=== PATIENT | male | born 1965 ===

== ENCOUNTER 2017-12-27 17:56 | Emergency (ER) | payer OTHER ==
[2017-12-27 18:07] VITALS: BMI 34.4
[2017-12-27 18:08] VITALS: RESP 18
[2017-12-27] MEDS ORDERED: cefTRIAXone 1 gm 1 GM/100 ML BAG IVPB STA (18:18)
[2017-12-27] MEDS ORDERED: Vancomycin 1gm in NS 250ml 1 GM/250 ML BAG IVPB STA (18:19)
--- NOTE | 2017-12-27 18:30 | ED PDOC ---
Arrival/HPI - General Chief Complaint: Lower Extremity Problem/Injury Time Seen by Provider: 12/27/17 18:00 Historian: Patient - History of Present Illness Narrative History of Present Illness (Text): 12/27/17 18:21 51yo male with pmhx of hypertension present with complaint of worsening right lower leg wound and pain. States he had a little lump that looked like pimple. States he squeezed it and it became bigger. States pain became worse with redness to the area. Denies fever, but had low grade temp during the triage. He denies nausea, vomiting, calf pain, any other complaint. Past Medical History - Provider Review Nursing Documentation Reviewed: Yes - Infectious Disease Hx of Infectious Diseases: None - Cardiac Hx Hypertension: Yes - Psychiatric Hx Substance Use: No - Anesthesia Hx Anesthesia: No Family/Social History - Physician Review Nursing Documentation Reviewed: Yes Family/Social History: Unknown Family HX Smoking Status: Never Smoked Hx Alcohol Use: No Hx Substance Use: No Allergies/Home Meds Allergies/Adverse Reactions: Allergies No Known Allergies Allergy (Verified 12/27/17 18:07) Home Medications: Home Meds Medication Instructions Recorded Confirmed Losartan [Cozaar] 1 tab PO DAILY 12/27/17 12/27/17 Review of Systems - Physician Review All systems were reviewed & negative as marked: Yes - Review of Systems Constitutional: Normal Eyes: Normal ENT: Normal Respiratory: Normal Cardiovascular: Normal Gastrointestinal: Normal Genitourinary Male: Normal Musculoskeletal: Normal Skin: Abscess, Cellulitis Neurological: Normal Endocrine: Normal Hemo/Lymphatic: Normal Psychiatric: Normal Physical Exam Vital Signs Reviewed: Yes Vital Signs Temp Pulse Resp BP Pulse Ox 12/27/17 18:08 99 F 105 H 18 143/78 96 12/27/17 18:07 99 F 105 H 18 143/78 96 Temperature: Afebrile Blood Pressure: Normal Pulse: Regular Respiratory Rate: Normal Appearance: Positive for: Well-Appearing, Non-Toxic, Comfortable Pain Distress: None Mental Status: Positive for: Alert and Oriented X 3 - Systems Exam Head: Present: Atraumatic, Normocephalic Pupils: Present: PERRL Extroacular Muscles: Present: EOMI Conjunctiva: Present: Normal Mouth: Present: Moist Mucous Membranes Neck: Present: Normal Range of Motion Respiratory/Chest: Present: Clear to Auscultation, Good Air Exchange. No: Respiratory Distress, Accessory Muscle Use Cardiovascular: Present: Regular Rate and Rhythm, Normal S1, S2. No: Murmurs Abdomen: No: Tenderness, Distention, Peritoneal Signs Back: Present: Normal Inspection Upper Extremity: Present: Normal Inspection. No: Cyanosis, Edema Lower Extremity: Present: Normal Inspection. No: Edema Neurological: Present: GCS=15, CN II-XII Intact, Speech Normal Skin: Present: Warm, Dry, Normal Color, Abscess (Draining abscess with surrounding erythema noted to right mak/anterior lower leg. +Warm to touch. No crepitus.). No: Rashes Psychiatric: Present: Alert, Oriented x 3, Normal Insight, Normal Concentration Medical Decision Making ED Course and Treatment: 12/27/17 20:28 PT present to ED for stated history. He was afebrile and hemodynamically stable. Lab was unremarkable Pt was offered admission , but he declined. He was treated with Rocephin and Vanco in ED. Result was DW the pt. He was advised to return to ED immediately for worsening redness, fever or any other complaint. Keflex and Bactrim DS rx was given. - Lab Interpretations Lab Results: 12/27/17 19:15 12/27/17 19:15 Lab Results 12/27/17 19:15: Sodium 141, Potassium 4.2, Chloride 103, Carbon Dioxide 28, Anion Gap 15, BUN 13, Creatinine 0.8, Est GFR ( Amer) > 60, Est GFR (Non- Af Amer) > 60, Random Glucose 161 H, Calcium 9.3, Total Bilirubin 0.3, AST 28, ALT 27, Alkaline Phosphatase 74, Total Protein 7.8, Albumin 4.0, Globulin 3.8, Albumin/Globulin Ratio 1.1 12/27/17 19:15: WBC 10.7, RBC 4.31, Hgb 13.5 L, Hct 38.6 L, MCV 89.6, MCH 31.3, MCHC 35.0, RDW 13.1, Plt Count 236, MPV 10.5, Gran % 64.5, Lymph % (Auto) 24.7, S[place]y % (Auto) 9.6 H, Eos % (Auto) 0.9 L, Baso % (Auto) 0.3, Gran # 6.90 H, Lymph # (Auto) 2.7, [place]y # (Auto) 1.0 H, Eos # (Auto) 0.1, Baso # (Auto) 0.03 - Medication Orders Current Medication Orders: Discontinued Medications Ceftriaxone Sodium (Rocephin 1 Gram Ivpb) 1 gm in 100 mls @ 200 mls/hr IVPB STAT STA PRN Reason: Protocol Stop: 12/27/17 18:47 Last Admin: 12/27/17 19:24 Dose: 200 mls/hr eMAR Start Stop Document 12/27/17 19:24 HI (Rec: 12/27/17 19:24 [place] [id number]) Intravenous Solution Start Date 12/27/17 Start Time 19:15 Vancomycin HCl (Vancomycin 1gm) 1 gm in 250 mls @ 167 mls/hr IVPB STAT STA PRN Reason: Protocol Stop: 12/27/17 19:48 Disposition/Present on Arrival - Present on Arrival Any Indicators Present on Arrival: No History of DVT/PE: No History of Uncontrolled Diabetes: No Urinary Catheter: No History of Decub. Ulcer: No History Surgical Site Infection Following: None - Disposition Have Diagnosis and Disposition been Completed?: Yes Diagnosis: Cellulitis and abscess of leg Disposition: HOME/ ROUTINE Disposition Time: 19:55 Patient Plan: Discharge Patient Problems: Current Active Problems Problem Status Onset Cellulitis and abscess of leg Acute Condition: STABLE Discharge Instructions (ExitCare): Cellulitis (Skin Infection), Adult (DC), Cellulitis (ED) Additional Instructions: Follow up with your Doctor Return to ED for fever, worsening redness, any other new complaint Prescriptions: Cephalexin [Keflex] 500 mg PO TID #30 capsule Ibuprofen [Motrin Tab] 600 mg PO Q6 #15 tab Sulfamethoxazole/Trimethoprim [Bactrim DS 800 mg-160 mg] 1 tab PO BID #20 tab Referrals: Dorinda Mckeon MD [Medical Doctor] - Follow up with primary Forms: Sampa (Mosotho)
[2017-12-27 19:40] LABS: BASO # 0.03 K/mm3 (0.0-2.0); BASO % 0.3 % (0.0-3.0); EOS # 0.1 (0.0-0.7); EOS % 0.9 % (1.5-5.0); GRAN # 6.9 (1.4-6.5); GRAN % 64.5 % (50.0-68.0); HEMOGLOBIN 13.5 g/dL (14.0-18.0); LYMPH # 2.7 (1.2-3.4); LYMPH % 24.7 % (22.0-35.0); MEAN CELL VOLUME 89.6 fl (80.0-105.0); MEAN CORPUSCULAR HEMOGLOBIN 31.3 pg (25.0-35.0); MEAN PLATELET VOLUME 10.5 fl (7.0-11.0); MONO % 9.6 % (1.0-6.0); RBC 4.31 10^6/uL (3.5-6.1); RED CELL DISTRIBUTION WIDTH 13.1 % (11.5-14.5); WHITE BLOOD COUNT 10.7 10^3/ul (4.5-11.0)
[2017-12-27 19:50] LABS: ALB/GLOB RATIO 1.1 (1.1-1.8); ALT/SGPT 27 U/L (7-56); AST/SGOT 28 U/L (17-59); BLOOD UREA NITROGEN 13 mg/dL (7-21); CALCIUM 9.3 mg/dL (8.4-10.5); GFR AFRICAN-AMERICAN > 60; GFR NON-AFRICAN AMERICAN > 60
[2017-12-27 22:58] VITALS: BP 132/69; PULSE 89; TEMP 98.9; O2SAT 97
== END 2017-12-27 22:08 | disposition home or self-care (01) ==
LOC: ED 17:56
DX: L03.115 Cellulitis of right lower limb (principal); L02.415 Cutaneous abscess of right lower limb
CPT/HCPCS: 80053; 85025; 87040; 87070; 96374; 96375; 99284; J0696